=== PATIENT | female | born 1960 | race Caucasian/White ===

== ENCOUNTER 2025-10-19 15:43 | Outpatient (OUT) | payer SELFPAY ==
--- OUTSIDE RECORDS SUMMARY | 2025-10-19 15:51 | XMS_ITS | Clinical Summary ---
Author Organization [facility] Healthcare Address [address] [place] [address] Care Team Providers Care Machine Stamper Name Role Phone Unavailable Primary Care Provider Unavailabl e Social History Tobacco UseTypesPacks/DayYears UsedDateSmoking Tobacco: Never Assessed CommentsUnknownSex and Gender InformationValueDate RecordedSex Assigned at Not on fileLegal KekAuxgzo45/15/2023 8:25 PM EDTGender IdentityNot on fileSexual OrientationNot on file Last Filed Vital Signs Vital SignReadingTime TakenCommentsBlood Hibqkvek757/7510 12:00 PM EDT Pulse--Temperature--Respiratory Rate--Oxygen Saturation--Inhaled Oxygen Concentration--Msytls26.9 kg (207 lb)09/17/2018 12:00 PM EZUZaudyz822.7 cm (5' 8 )09/17/2018 12:00 PM EDTBody Mass Index31.4709/17/2018 12:00 PM EDT Plan of Treatment Not on file
[2025-10-19 16:13] LABS: Hematocrit 40.9 % (36.0-48.0); Hemoglobin 13.8 g/dL (12.0-16.0); Immature Granulocytes Abs Auto 0.14 10^3/uL (0.00-0.03); Immature Granulocytes Pct Auto 1.0 % (0.0-0.5); Lymphocytes Absolute Auto 2.5 10^3/uL (1.2-3.8); Mean Corpuscular HGB Conc 33.7 g/dL (29.9-35.2); Mean Corpuscular Hemoglobin 30.5 pg (26.7-34.0); Mean Corpuscular Volume 90.5 fL (81.0-99.0); Platelet Count 387 10^3/uL (150-450); Red Blood Count 4.52 10^6/uL (4.20-5.40); White Blood Count 13.8 10^3/uL (4.0-11.0)
[2025-10-19 16:45] LABS: Alanine Aminotransferase 32 U/L (14-59); Albumin Globulin Ratio 1.4; Albumin Level 4.2 g/dL (3.4-5.0); Alkaline Phosphatase 105 U/L (46-116); Anion Gap 15.3; Aspartate Amino Transferase 15 U/L (15-37); Blood Urea Nitrogen 24.0 mg/dL (7.0-18.0); Calcium 9.7 mg/dL (8.5-10.1); Carbon Dioxide 24.3 mmol/L (21.0-32.0); Chloride 103 mmol/L (98-107); Cholesterol 245 mg/dL (<=200); Estimated GFR (African America 59 (>=60 mL/min/1.73m^2); Estimated GFR (Non-African Ame 49 (>=60 mL/min/1.73m^2); Free T3 2.49 pg/mL (2.18-3.98); Globulin 3.1 g/dL; Glucose 118 mg/dL (74-106); HDL Cholesterol 62 mg/dL (40-60); Iron 58.0 ug/dL (50.0-170.0); Magnesium 2.2 mg/dL (1.8-2.4); NT Pro B Type Natriuretic Pept 270.0 pg/mL (<=900.0); Potassium 3.6 mmol/L (3.5-5.1); Sodium 139 mmol/L (136-145); Thyroid Stimulating Hormone 3.126 uIU/mL (0.358-3.740); Total Protein 7.3 g/dL (6.4-8.2); Triglycerides 206 mg/dL (<=150); VLDL CHOLESTEROL 41.2 mg/dL
== END 2025-10-19 15:44 | disposition home or self-care (01) ==
PROVIDERS: PCP Family Medicine; Visit Provider Family Medicine
DX: F41.9 Anxiety disorder, unspecified (principal); R00.1 Bradycardia, unspecified
CPT/HCPCS: 36415; 80053; 80061; 82306; 83540; 83735; 83880; 84436; 84443; 84481; 84484; 85025

== ENCOUNTER 2025-10-25 08:58 | Outpatient (OUT) | payer SELFPAY ==
--- OUTSIDE RECORDS SUMMARY | 2025-10-25 09:01 | XMS_ITS | Clinical Summary ---
Author Organization [facility] Healthcare Address [address] [place] [address] Care Team Providers Care Paperhanger Supervisor Name Role Phone Unavailable Primary Care Provider Unavailabl e Social History Tobacco UseTypesPacks/DayYears UsedDateSmoking Tobacco: Never Assessed CommentsUnknownSex and Gender InformationValueDate RecordedSex Assigned at Not on fileLegal TudNcldya65/15/2023 8:25 PM EDTGender IdentityNot on fileSexual OrientationNot on file Last Filed Vital Signs Vital SignReadingTime TakenCommentsBlood Xfqmlqtk139/7510 12:00 PM EDT Pulse--Temperature--Respiratory Rate--Oxygen Saturation--Inhaled Oxygen Concentration--Wyedid77.9 kg (207 lb)09/17/2018 12:00 PM CZHFrcrib081.7 cm (5' 8 )09/17/2018 12:00 PM EDTBody Mass Index31.4709/17/2018 12:00 PM EDT Plan of Treatment Not on file
[2025-10-25 10:17] LABS: Alanine Aminotransferase 28 U/L (14-59); Albumin Globulin Ratio 1.1; Albumin Level 3.6 g/dL (3.4-5.0); Alkaline Phosphatase 102 U/L (46-116); Anion Gap 10.7; Aspartate Amino Transferase 13 U/L (15-37); Blood Urea Nitrogen 11.0 mg/dL (7.0-18.0); Calcium 9.4 mg/dL (8.5-10.1); Carbon Dioxide 29.1 mmol/L (21.0-32.0); Chloride 108 mmol/L (98-107); Estimated GFR (African America >60 (>=60 mL/min/1.73m^2); Estimated GFR (Non-African Ame >60 (>=60 mL/min/1.73m^2); Globulin 3.3 g/dL; Glucose 130 mg/dL (74-106); Potassium 3.8 mmol/L (3.5-5.1); Sodium 144 mmol/L (136-145); Total Protein 6.9 g/dL (6.4-8.2)
== END 2025-10-25 08:59 | disposition home or self-care (01) ==
LOC: LAB 08:59
PROVIDERS: PCP Family Medicine; Visit Provider Family Medicine
DX: R00.1 Bradycardia, unspecified (principal)
CPT/HCPCS: 36415; 80053; 83036; 83525

== ENCOUNTER 2025-10-26 14:30 | Outpatient (OUT) | payer SELFPAY ==
--- OUTSIDE RECORDS SUMMARY | 2025-10-21 14:16 | XMS_ITS | Continuity of Care Document ---
Author Organization [facility] Address [address] [place] [address] Phone Care Team Providers Care Systems Integration Engineer Name Role Phone Ranjit Linares MD Primary Care Provider [phone] Pop Malloy MD Emergency Provider Care Teams Patient Care Team Team Status: Active Member Role/Relationship Status Dates Ranjit Linares MD Primary Care Provider Active Visit Care Team Team Status: Inactive Member Role/Relationship Status Dates Ranjit Linares MD Primary Care Provider Active Start: October 21, 2025 End: October 21, 2025Pop Malloy MDEmergency ProviderActiveStart: October 21, 2025 End: October 21, 2025 Chief Complaint and Reason for Visit Chief Complaint Admit Date ekg fri- dr wants another ekc September 252024 2:46pm Allergies, Adverse Reactions, Alerts Allergen Type Severity Reaction Last Updated Verified Status No Known Allergies Allergy Unknown October 21, 2025 2:52pmYesActive Social History Smoking Status Status Start Date End Date Date of Observa tion Never smoked tobacco (finding) October 21, 2025 5:01pm Observation Status Observation Response Date of Response Legal Sex Female (finding) Sex Assigned At [facility] 1960 Problems Active Problems Problem Diagnosis/Recorded Date Onset Date Stat us UTI (urinary tract infection) October 21, 2025 6:46 pm Unknown Active Dyspnea October 21, 2025 6:46pm Unknown A ctive Medications Medication Status Dose Units Route Directions Qty Days Refills S tart Date Stop Date End Date Reason(s) Instructions Adherence Nitrofurantoin Monohyd/M-Cryst (Macrobid) 100 mg capsule Active 100 MG PO Q12H 14 0November 2024 12:00amAdminister with a meal/food: swallow whole; do not open, crush, dissolve, or chewUnknown Procedures Procedure Date Performed Status XR chest 2V* October 21, 2025 4:07pm compl eted CT head/brain wo con October 21, 2025 4:59pm completed Urine Culture October 21, 2025 active Relevant Diagnostic Tests and/or Laboratory Data Laboratory Results Test Collection Date/Time Result Date/Time Result Interpretation Reference Range Result Comment Performing Site Corrected White Blood Count October 21, 2025 4:25pm October 21, 2025 5:30pm 14.7 10*3/uL Above high normal 3.8-11.6 [facility] [id number] [address] [facility] [address]Xbkcgnhhatf WBC CountOctober 21, 2025 4:25pmOctober 21, 2025 5:30pm14.7 10*3/uLAbove high normal3.8-11.6[facility] [id number] [address] [facility] 09284Twg Blood CountOctober 21, 2025 4:25pmOctober 21, 2025 5:30pm4.76 10*6/uL3.60-5.00[facility] [id number] [address] [facility] 09270BwtomoobexWntswizl 28th, 2025 4:25pmOctober 21, 2025 5:30pm 14.1 g/dL11.8-15.4FDun[facility] [id number] [address] [facility] 7[address]OpkabzosawHvnnyimg 28th, 2025 4:25pmOctober 21, 2025 5:30pm 42.3 %34.0-46.4FD[facility] [id number] [address] [facility] 50006Rfnb Corpuscular VolumeOctober 21, 2025 4:pmOctober 21, 2025 5:30pm88.8 bH36-435DeenuzjkvOur Lady Of Mercy Hospital [facility] [id number] [address] [facility] 58161Uicd Corpuscular HemoglobinOctober 21, 2025 4:pmOctober 21, 2025 5:30pm29.7 pg24.7-34.3FDunlap [facility] [id number] [address] [facility] 41750Ttak Corpuscular Hemoglobin ConcentNov2024 4:25pm October 21, 2025 5:30pm33.4 g/dL32.0-35.0[facility] [id number] [address] [facility] 50707Ifl Cell Distribution WidthOctober 21, 2025 4:25pmOctober 21, 2025 5:30pm13.5 %11.9-15.3FD[facility] [id number] [address] [facility] 78779Rhuhhviz CountOctober 21, 2025 4:25pmOctober 21, 2025 5:30jx244 10*3/pM471-557AzldkmrzhOur Lady Of Mercy [facility] [id number] [address] [facility] 30249Ppla Platelet VolumeNov2024 4:25pmOctober 21, 2025 5:30pm6.8 fL6.3-10.7FDun[facility] [id number] [address] [facility] 70773Xtoyclqf Distribution WidthOctober 21, 2025 4:25pmOctober 21, 2025 5:30pm18.48 %0.00-20.00[facility] [id number] [address] [facility] 51197Wonpnhfditn (%) (Auto)October 21, 2025 4:25pmOctober 21, 2025 5:30pm75.9 %.[facility] [id number] [address] [facility] 59066Wnvhsmumpkp (%) (Auto)October 21, 2025 4:25pmOctober 21, 2025 5:30pm13.5 %.[facility] [id number] [address] [facility] 29973Dnqzkndeu (%) (Auto)October 21, 2025 4:25pmOctober 21, 2025 5:30pm8.9 %.[facility] [id number] [address] [facility] 44786Kwlxnqnbwkr (%) (Auto)October 21, 2025 4:25pmNov2024 5:30pm1.0 %.[facility] [id number] [address] [facility] 90831Waphrhptn (%) (Auto)October 21, 2025 4:25pmNov2024 5:30pm0.7 %.[facility] [id number] [address] [facility] 88191Glaolnons RBC Relative Count (auto)October 21, 2025 4:25pm October 21, 2025 5:30pm0.0 /100{WBC}0-0.5FDun[facility] [id number] [address] [facility] [address]Kawzxemxzea # (Auto)October 21, 2025 4:25pmNov2024 5:30pm11.1 10*3/uLAbove high normal1.8-7.7FD[facility] [id number] [address] [facility] 69192Khymdvotxxi # (Auto)October 21, 2025 4:25pmNov2024 5:30pm2.0 10*3/uL1.00-4.8[facility] [id number] [address] [facility] 08629Znospykhc # (Auto)October 21, 2025 4:25pmNov2024 5:30pm1.3 10*3/uLAbove high normal0.0-0.8[facility] [id number] [address] [facility] 35545Ywghdfaeiaf # (Auto)October 21, 2025 4:25pmNov2024 5:30pm0.1 10*3/uL0.0-0.45[facility] [id number] [address] [facility] 449[address]Vxvnrgqkn # (Auto)October 21, 2025 4:25pmNov2024 5:30pm0.1 10*3/uL0.0-0.2FD[facility] [id number] [address] [facility] 6[address]Wmrueyxpqan Sedimentation RateNov2024 4:25pm October 21, 2025 5:38pm21 mm/hr0-29[facility] [id number] [address] [facility] 82363Kqbfl ColorNov2024 6:06pmNov2024 6:14pm YellowYellowOur Lady Of Mercy Hospital [facility]tr [id number] [address] [facility] 90382Yipzn AppearanceNovember 2024 6:06pmNov2024 6:14pmCloudyAbnormal (applies to non-numeric results)ClearOur Lady Of Mercy Hospital [facility]tr [id number] [address] [facility] 14289Ndysm Specific GravityNov2024 6:06pmOctober 21, 2025 6:14pm1.0221.001-1.030[facility] [id number] [address] [facility] 92125Xwmux pHNov2024 6:06pmOctober 21, 2025 6:14pm5.5 5.0-9.0[facility] [id number] [address] [facility] 27561Axjbq Leukocyte EsteraseOctober 21, 2025 6:06pmOctober 21, 2025 6:14pm4+Above high normalNegativeOur [facility] Of [facility] [id number] [address] [facility] 58515Aqpkv NitriteNov2024 6:06pmNov2024 6:14pmNegativeNegativeOur [facility] Of [facility] [id number] [address] [facility] 49560Xjztc ProteinNov2024 6:06pmNov2024 6:14pmTrace mg/dLAbove high normalNegativeOur [facility] Of [facility] [id number] [address] [facility] 53192Fqdif Glucose (UA)October 21, 2025 6:06pmNov2024 6:14pm30 mg/dLAbove high normalNormalOur [facility] Of [facility] [id number] [address] [facility] 52888Aftcw KetonesNov2024 6:06pmNov2024 6:14pmNegativeNegativeOur [facility] Of [facility] [id number] [address] [facility] 12968Gppmr UrobilinogenNovember 2024 6:06pmNov2024 6:14pmNormal mg/dLNormalOur [facility] Of [facility] [id number] [address] [facility] 87751Evkdo BilirubinNov2024 6:06pmNov2024 6:14pmNegativeNegativeOur [facility] Of [facility] [id number] [address] [facility] 28501Umbbu Occult BloodNov2024 6:06pmNov2024 6:14pmNegativeNeg[facility] [id number] [address] [facility] 94389Nbvip RBCNovember 2024 6:06pmOctober 21, 2025 6:17pm5- 9 [HPF]Above high normal0-4FDunlap [facility] [id number] [address] [facility] 89408Pjkoc WBCNovember 2024 6:06pmNov2024 6:17pm 20-49 [HPF]Above high normal0-4FDunlap [facility] [id number] [address] [facility] 45529Kapgq Squamous Epithelial CellsNovember 2024 6:06pm October 21, 2025 6:72dr48-46 [HPF]Above high normal0-2FDunlap [facility] [id number] [address] [facility] 71566Yhvww BacteriaNov2024 6:06pmNov2024 6:17pmRare [HPF]None SeenOur Lady Of Mercy Hospital Ctr [id number] [address] [facility] 13846Brecs Hyaline CastsNov2024 6:06pmNov2024 6:36xd7-7 [LPF]0-8[facility] [id number] [address] [facility] 72787Ucdaj MucusNovember 2024 6:06pmNov2024 6:17pm 3+ [LPF]Abnormal (applies to non-numeric results)[facility] [id number] [address] [facility] 19000Ucujzde LevelOctober 21, 2025 4:25pmOctober 21, 2025 5:35rh858 mg/dLAbove high ylswwu65-162NBY recommended reference rangeRandom Glucose Reference Range is dependent on time and content of last meal. Glucose of more than 200 mg/dL in a nonstressed, ambulatory subject supports the diagnosisof Diabetes Mellitus.[facility] [id number] [address] [facility] 56724Enuxh Urea NitrogenOctober 21, 2025 4:25pmOctober 21, 2025 5:55pm19 mg/dL7-25[facility] [id number] [address] [facility] 30276BoiyvhyaftQkdodvrd 28th, 2025 4:25pmOctober 21, 2025 5:55pm 1.11 mg/dL0.60-1.20[facility] [id number] [address] [facility] 15337Tnwsqtrns GFR (CKD-EPI)October 21, 2025 4:25pmOctober 21, 2025 5:55pm55.505 mL/MinOur Lady Of Mercy Hospital [facility] [id number] [address] [facility] 46276Eapynm LevelOctober 21, 2025 4:25pmOctober 21, 2025 5:94tu491 mmol/Y511-160TqzuiaqqkOur Lady Of Mercy Hospital [facility] [id number] [address] [facility] 15619Lcovzovza LevelOctober 21, 2025 4:25pmOctober 21, 2025 5:55pm4.0 mmol/L3.5-5.1Hemolysis is present at a level that could interfere with the result.Contact lab if redraw is requiredOur Lady Of Mercy [facility] [id number] [address] [facility] 74688Tvtgijoi LevelOctober 21, 2025 4:25pmOctober 21, 2025 5:35cg007 mmol/W88-688QagonfjeoOur Lady Of Mercy Hospital [facility] [id number] [address] [place] 7060670Carbon Dioxide LevelOctober 21, 2025 4:25pmOctober 21, 2025 5:55pm23.4 mmol/L21.0-31.0[facility] [id number] [address] [facility] 76682Oxylb GapNov2024 4:25pmNov2024 5:55pm 13.6 mEq/L6.0-15.0[facility] [id number] [address] [facility] 05562Colwfwi LevelNov2024 4:25pmNov2024 5:55pm9.4 mg/dL8.6-10.3FDunlap [facility] [id number] [address] [facility] 69878Cysue ProteinNov2024 4:25pmNov2024 5:55pm7.0 g/dL6.4-8.9[facility] [id number] [address] [facility] 21574PvldabwMuwcynfd 28th, 2025 4:25pmNov2024 5:55pm4.3 g/dL3.5-5.7FDunlap Memorial [facility] [id number] [address] [facility] 20026WalvzikfWozwtocg 28th, 2025 4:25pmNov2024 5:55pm2.7 g/dLOur Lady Of Mercy Hospital [facility] [id number] [address] [facility] 73241Icuanfm/Globulin RatioNovember 2024 4:25pmOctober 21, 2025 5:55pm1.6FDunlap [facility] [id number] [address] [facility] 40101Jqfgg BilirubinNov2024 4:25pmNov2024 5:55pm0.5 mg/dL0.3-1.0[facility] [id number] [address] [facility] 04092Pzxrxlrcp Amino Transf (AST/SGOT)October 21, 2025 4:25pm October 21, 2025 5:55pm15 U/O35-67XzldukaqjOur Lady Of Mercy Hospital [facility]tr [id number] [address] [facility] 02870Sicyrcc Aminotransferase (ALT/SGPT)October 21, 2025 4:25pm October 21, 2025 5:55pm17 U/L7-52[facility] [id number] [address] [facility] 29817Jndgzfxi PhosphataseOctober 21, 2025 4:25pmNov2024 5:55pm89 U/F63-444IbulbifvzOur Lady Of Mercy Hospital [facility]tr [id number] [address] [facility] 78260Atask Creatine KinaseOctober 21, 2025 4:25pmOctober 21, 2025 5:46pm62 U/U85-588GhenbcipuOur Lady Of Mercy Hospital [facility] [id number] [address] [facility] 68484Dxmpdwno I High SensitivityOctober 21, 2025 4:25pmOctober 21, 2025 5:54pm3 ng/L0-15The Troponin units of report have been changed to meet the Chest Pain Accreditation requirement, element EC5.M1l2. Troponin units are changed from pg/ml to ng/L. Also, the decimal is removed and results are in whole numbers.[facility] [id number] [address] [facility] 52083G-Zqlj Natriuretic PeptideNov2024 4:25pmOctober 21, 2025 5:53pm17.0 pg/mL5-100[facility] [id number] [address] [place] [address] 00716Uubzalq Stimulating Hormone 3rd GenNov2024 4:25pm October 21, 2025 6:04pm2.24 u[iU]/mL0.45-5.33[facility] [id number] [address] [place] [address] 21932Wztzjpkm Creatinine Clearance (ChemNov2024 4:25pm October 21, 2025 5:55pm60.91[facility] [id number] [address] [place] [address] Diagnostic Imaging Reports Author Bakari Terrell [facility]Report Date/TimeNovember 2024 5:15pm [facility] [address] [place] [address] XRay Report Signed Patient: Vidya Lee MR#: [id number] 632 : 1960 Acct:[id number] Age/Sex: 64 / F ADM Date: 5 Loc: ER Room: Type: [facility] ER Attending Dr: Copies to: Pop Malloy MD~ Ordering Provider: Pop Malloy MD Date of Service: 10/21/25 XR/XR chest 2V*: Shortness of Breath/Dyspnea PA AND LATERAL CHEST: CLINICAL HISTORY: Shortness breath COMPARISON: None FINDINGS: Upper limits normal cardiomediastinal silhouette. Lungs clear. No effusion or pneumothorax. XR/XR chest 2V* IMPRESSION: NO ACUTE CARDIOPULMONARY ABNORMALITY. Impression dictated by: Bakari Terrell M.D. 10/21/2025 5:15 PM Dictation Location: [place] [address] Transcribed By: [facility] 10/21/251714 Dictated By: Bakari Terrell MD 10/21/251713 Signed By: <Electronically signed by Bakari Terrell MD in [place]> 10/21/251714 Author Bakari Terrell [facility]Report Date/TimeNovember 2024 5:47pm [facility] [address] CT Scan Report Signed Patient: Vidya Lee MR#: [id number] 632 : 1960 Acct:[id number] Age/Sex: 64 / F ADM Date: 5 Loc: ER Room: Type: [facility] ER Attending Dr: Copies to: Pop Malloy MD~ Ordering Provider: Pop Malloy MD Date of Service: 10/21/25 CT/CT head/brain wo con: [facility] CT BRAIN WITHOUT CONTRAST: CLINICAL HISTORY: Episodes of confusion COMPARISON: None TECHNIQUE: Contiguous axial unenhanced images were obtained through the brain. This CT exam was performed using one or more following dose reduction techniques: Automated exposure control, adjustmentof the mA and/or kV accordingto patient size, or use of iterative reconstruction technique. FINDINGS: There is no evidence of midline shift, intra or extra-axial fluid collection, hemorrhage or CT evidence of acute large vascular distribution stroke. Visualized intraorbital contents appear unremarkable. Visualized paranasal sinuses are clear. The surrounding soft tissues are normal. CT/CT head/brain wo con IMPRESSION: NO ACUTE INTRACRANIAL ABNORMALITY. Impression dictated by: Bakari Terrell M.D. 10/21/2025 5:47 PM Dictation Location: [place] [address] Transcribed By: [facility] 10/21/251746 Dictated By: Bakari Terrell MD 10/21/251744 Signed By: <Electronically signed by Bakari Terrell MD in [place]> 10/21/251746 Vital Signs Vital Reading Result Reference Range Collection Date/Time Height 67 [in_i] October 21, 2025 2:33saXpmlam30.00 kgNov2024 2:55pmBody Bqwyzsquhoj38.5 [degF]97.6-99.0October 21, 2025 2:55pmHeart Rate80 /gju65-038 October 21, 2025 6:27pmRespiratory rate16 /znv36-89ZaxkwlznOctober 21, 2025 6:27pm Oxygen saturation by Pulse kjekgulw605 %95-100October 21, 2025 6:27pmBP Gapogmud695 mm[Hg]100-140October 21, 2025 6:27pmBP Rxoglwihw50 mm[Hg]60-100 October 21, 2025 6:27pm Advance Directives Advance Directive Response Recorded Date/ Time Advance Directives No September 5:03pm Insurance Providers Guarantor Vidya Lee Address [address] [place], [place] [address]Contact Info.Home Phone: Coverage Status Update:2025 Payer Group Member ID Coverage Type Subscriber Relationship to Subscriber Effective Date Expiration Date nullSelf Encounters Encounter Location(s) Arrival/Admit Date Discharge/Departure Date Discharge/Departure Disposition Provider(s) Departed Emergency -Emergency Room October 21, 2025 2:46pm October 21, 2025 7:15pm Discharged to home care or self care (routine discharge) Plan of Treatment Future Tests Future scheduled test information is unavailable Pending Tests Test Name Ordered Date Scheduled Date Urine Culture October 21, 2025 6:06pm Future Visits Future appointment information is unavailable Future Procedures Procedure Name Ordered Date Scheduled Date Urine Culture October 21, 2025 6:08pm Novem poppy 2024 6:06pm Future Medications Future medication information is unavailable Patient Instructions Instruction Admit Date Urinary tract infection in a dults - ED discharge instructions Shortness of breath in adults - ED discharge instructionsNov2024 2:46pm Hospital Discharge Instructions Additional Instructions Follow-up with internal corrosion specialist for the junctional rhythm you had in the doctor's office Return if symptoms are worse
== END 2025-10-26 14:31 | disposition home or self-care (01) ==
LOC: CARD 11-01 10:39
PROVIDERS: PCP Family Medicine; Visit Provider Family Medicine
DX: F41.9 Anxiety disorder, unspecified (principal)
CPT/HCPCS: 93242